=== PATIENT | female | born 1985 | race Two or more races ===

== ENCOUNTER 2017-12-17 02:00 | Emergency (ER) | payer OTHER ==
[2017-12-17] MEDS ORDERED: IBUPROFEN 100 MG/5 ML UDC ONE (02:18)
== END 2017-12-17 03:23 | disposition left against medical advice (07) ==
LOC: ED 03:01
DX: Z53.21 Procedure and treatment not carried out due to patient leaving prior to being seen by health care provider (principal)
CPT/HCPCS: 59025; 99211; G0463

== ENCOUNTER 2017-12-17 02:16 | Outpatient (CLI) | payer OTHER ==
[2017-12-17 02:56] LABS: MICROSCOPIC INDICATED
== END 2017-12-17 04:15 | disposition home or self-care (01) ==
LOC: LDOP 02:16
PROVIDERS: ATTEND Obstetrics & Gynecology
DX: O46.91 Antepartum hemorrhage, unspecified, first trimester (principal); Z3A.01 Less than 8 weeks gestation of pregnancy
CPT/HCPCS: 59025; 76815; 81001; 87086; 99211; G0463

== ENCOUNTER 2017-12-19 15:54 | Outpatient (CLI) | payer OTHER ==
[~2017-12-19] VITALS: Ht 157.5 cm; Wt 49.0 kg
[2017-12-19] MEDS ORDERED: PREN1TAB60 PO (16:31)
[2017-12-19 17:14] VITALS: BP 115/62
== END 2017-12-19 17:38 | disposition home or self-care (01) ==
LOC: LDOP 15:54
PROVIDERS: ATTEND Obstetrics & Gynecology
DX: O36.8130 Decreased fetal movements, third trimester, not applicable or unspecified (principal); Z3A.28 28 weeks gestation of pregnancy
CPT/HCPCS: 59025; 89060; 99211; G0463; Q0114